=== PATIENT | male | born 1965 | race Caucasian/White ===

== ENCOUNTER → 2024-11-17 | Outpatient (CLI) | payer OTHER, SELFPAY ==
--- NOTE | 2024-11-17 14:34 | XR_ITS ---
Examination:Left hip AP, lateral, AP pelvis 3 views Technique: Hip AP lateral, AP pelvis, 3 views Exam date and time:November 17, 2024, 1437 hours INDICATIONS: Left hip pain beginning 1.5 weeks ago. FINDINGS: Mild osteopenia. Mild bilateral hip joint narrowing No right or left hip fracture or dislocation No avascular necrosis. Bones the pelvis intact IMPRESSION: Mild bilateral hip joint narrowing.
== END | disposition home or self-care (01) ==
PROVIDERS: PCP Family Medicine; Referring Provider Family Medicine; Visit Provider Family Medicine
DX: M25.852 Other specified joint disorders, left hip (principal)
CPT/HCPCS: 73502